=== PATIENT | male | born 1980 | race Caucasian/White ===

== ENCOUNTER → 2016-06-18 | Outpatient (CLI) | payer OTHER ==
[~2016-06-18] MED LIST: ACET120S PO; MULT1TAB10 PO; PRIL20CA PO; [UNRECOGNIZED DRUG - OTHER] PO
[2016-06-18 14:12] LABS: EOS # 0.1 K/mm3 (0.0-0.50); EOS % 1.8 % (0.0-3.0); LARGE UNSTAINED CELL # 0.2 K/mm3 (0.0-0.4); LARGE UNSTAINED CELL % 3.5 % (0.0-4.0); LYMPH # 1.8 K/mm3 (1.5-4.5); LYMPH % 34.3 % (24.0-44.0); MEAN CORPUSCULAR HEMOGLOBIN 28.7 pg (27.0-33.0); MEAN CORPUSCULAR HGB CONC 34.7 g/dl (32.0-36.5); MEAN CORPUSCULAR VOLUME 82.5 fl (80.0-96.0); MONO # 0.3 K/mm3 (0.0-0.8); MONO % 6.5 % (0.0-5.0); NEUTROPHILS # 2.8 K/mm3 (1.8-7.7); PLATELET COUNT, AUTOMATED 208 k/mm3 (150-450); RED CELL DISTRIBUTION WIDTH 12.8 % (11.5-14.5); WHITE BLOOD COUNT 5.2 K/mm3 (4.0-10.0)
[2016-06-18 14:15] LABS: MICROSCOPIC INDICATED? MAN YES (NO)
[2016-06-18 14:22] LABS: INR 1.02
[2016-06-18 14:26] LABS: BACTERIA, URINE NONE SEEN; HYALINE CAST, URINE NONE SEEN /lpf (0-1); MICROSCOPIC EXAM PERFORMED; SQUAMOUS EPITHELIAL CELL URINE NONE SEEN /hpf (SMALL AMT)
== END ==
LOC: M LAB 12:43
DX: J35.1 Hypertrophy of tonsils (principal)

== ENCOUNTER → 2016-06-20 | Day surgery (SDC) | payer OTHER ==
[~2016-06-20] VITALS: Ht 182.9 cm; Wt 108.9 kg
[~2016-06-20] MED LIST changes: +ACETAMINOPHEN/CODEINE 12.5 ML UDC PO PRN; +BUPIVACAINE HCL 0.25% 30 ML VIAL As Ordered ONE; +BUPIVACAINE HCL 0.25% 30 ML VIAL XX ONE; +LIDOCAINE 2% INJ 100 MG/5 ML SDV (FOR ANES.) As Ordered ONE; +LR 1,000 ML IV SCH; +METOCLOPRAMIDE INJ 10MG/2ML VIAL (J2765) IV PRN; +MIDAZOLAM INJ 2 MG/2 ML VIAL (J2250) As Ordered ONE; +ONDANSETRON 4MG/2ML VIAL (J2405) As Ordered ONE; +ONDANSETRON 4MG/2ML VIAL (J2405) IV PRN; +PERCOCET 5MG/325MG TAB PO PRN; +PROPOFOL 200 MG/20 ML VIAL As Ordered ONE; +ROCURONIUM BROMIDE 50 MG/5 ML VIAL As Ordered ONE; +SUCCINYLCHOLINE 100 MG/5 ML SYRINGE (J0330) As Ordered ONE; +dexameTHASONE 4 MG/ML 1ML VIAL (J1100) As Ordered ONE; +fentaNYL 100 MCG/2 ML INJECTION (J3010) As Ordered ONE
[2016-06-20] MEDS: fentaNYL 100 MCG/2 ML INJECTION (J3010) IV PRN ×2 (14:25→14:30)
[2016-06-20 18:30] VITALS: BP 130/70
--- NOTE | 2016-06-20 23:11 | RO ---
DATE OF PROCEDURE: 06/20/2016 PREPROCEDURE DIAGNOSIS: Hypertrophic tonsils and obstructive sleep apnea. POSTPROCEDURE DIAGNOSIS: Hypertrophic tonsils and obstructive sleep apnea. OPERATIVE PROCEDURE: Tonsillectomy. SURGEON: Martir Hannah MD GEOPHYSICAL OPERATOR: ANESTHESIA: DESCRIPTION OF OPERATION: The patient was moved to the operating room table in the supine position. After the induction of general anesthesia and placement of endotracheal tube, a Dasha-Herb mouth gag was inserted. The tonsillar fossa was then infiltrated with 0.25% Marcaine plain, a total of 7 mL was used between the two sides. The left tonsil was then grasped using a curved Allis clamp. Using the Coblation machine on Coblation, the tonsil was excised from the tonsillar fossa. Hemostasis was achieved using the coblation machine on cautery. The right tonsil was then grasped using a curved Allis clamp and again using the coblation machine on coblation, the tonsil was excised from the tonsillar fossa. Hemostasis was achieved initially with electrocautery. There was still some bleeding deep at the base of the inferior pole of the tonsil. Attempts to cauterize this with the Coblation machine just opened a large vein with some significant bleeding. This was packed for approximately 5 minutes, greatly reducing the bleeding, however, there was still bleeding in this area and because of its placement it was opted to cross-clamp the bleeder and then over sew it with a #3-0 Chromic suture ligature. After over sewing that, an using regular electrocautery for any other evidence of bleeding the procedure was terminated. As the patient was waking up in the operating room he coughed and bucked and had significant bleeding, but this quickly settled down so that there was no further bleeding when he left the operating room. The patient tolerated the procedure well, left the operating room in good condition. Sponge and needle counts were correct. Estimated blood loss for the procedure was 125 mL.
== END | disposition home or self-care (01) ==
LOC: M SDC 09:16
DX: J35.1 Hypertrophy of tonsils (principal); G47.33 Obstructive sleep apnea (adult) (pediatric)
CPT/HCPCS: 42826; 88302; J0330; J1100; J2250; J2405; J3010

== ENCOUNTER 2017-10-23 21:54 | Emergency (ER) | payer OTHER ==
[2017-10-23] MEDS: LIDOCAINE 2% W/EPIN INJ 20ML **PRES FREE INJ (23:15)
[2017-10-23] MEDS: ACETAMINOPHEN 325 MG TAB PO (23:20)
[2017-10-24] MEDS: CEPHALEXIN 500 MG CAP PO
== END 2017-10-24 00:15 | disposition home or self-care (01) ==
LOC: M ED 10-24 00:15
DX: S51.821A Laceration with foreign body of right forearm, initial encounter (principal); S50.11XA Contusion of right forearm, initial encounter; W17.89XA Other fall from one level to another, initial encounter; Y92.018 Other place in single-family (private) house as the place of occurrence of the external cause
CPT/HCPCS: 73090

== ENCOUNTER 2019-11-19 14:23 | Emergency (ER) | payer OTHER ==
[~2019-11-19] VITALS: Ht 188 cm; Wt 119.7 kg
[~2019-11-19 14:23] MED LIST changes: -ACET120S PO; +ACET125EL PO; -ACETAMINOPHEN/CODEINE 12.5 ML UDC PO PRN; -BUPIVACAINE HCL 0.25% 30 ML VIAL As Ordered ONE; -BUPIVACAINE HCL 0.25% 30 ML VIAL XX ONE; +KEFL500C17 PO; -LIDOCAINE 2% INJ 100 MG/5 ML SDV (FOR ANES.) As Ordered ONE; -LR 1,000 ML IV SCH; -METOCLOPRAMIDE INJ 10MG/2ML VIAL (J2765) IV PRN; -MIDAZOLAM INJ 2 MG/2 ML VIAL (J2250) As Ordered ONE; -ONDANSETRON 4MG/2ML VIAL (J2405) As Ordered ONE; -ONDANSETRON 4MG/2ML VIAL (J2405) IV PRN; -PERCOCET 5MG/325MG TAB PO PRN; -PRIL20CA PO; +PRIL20CA9 PO; -PROPOFOL 200 MG/20 ML VIAL As Ordered ONE; -ROCURONIUM BROMIDE 50 MG/5 ML VIAL As Ordered ONE; -SUCCINYLCHOLINE 100 MG/5 ML SYRINGE (J0330) As Ordered ONE; -dexameTHASONE 4 MG/ML 1ML VIAL (J1100) As Ordered ONE; -fentaNYL 100 MCG/2 ML INJECTION (J3010) As Ordered ONE
[2019-11-19] MEDS ORDERED: EMLA CREAM 5GM (LIDOCAINE/PRILOCAINE) TOP ONE (15:00)
--- NOTE | 2019-11-19 15:27 | REP ---
CT brain: 11/19/2019. Indication: Head trauma. Technique: Unenhanced axial CT images of the brain were obtained from skull base to vertex with coronal reconstructions provided. Comparison: None. Findings: There is no acute intracranial hemorrhage, acute cortical infarction, mass effect, hydrocephalus or acute calvarial fracture. Impression: No acute intracranial process. Electronically Signed by Oscar Mascorro DO 11/19/2019 03:18 P
[2019-11-19 15:36] VITALS: BP 126/86
== END 2019-11-19 15:50 | disposition home or self-care (01) ==
LOC: M ED 14:23
DX: S01.01XA Laceration without foreign body of scalp, initial encounter (principal); W26.8XXA Contact with other sharp object(s), not elsewhere classified, initial encounter; Y92.828 Other wilderness area as the place of occurrence of the external cause; Y93.89 Activity, other specified; Y99.9 Unspecified external cause status; F17.220 Nicotine dependence, chewing tobacco, uncomplicated

== ENCOUNTER 2022-03-30 02:03 | Emergency (ER) | payer OTHER ==
[~2022-03-30] VITALS: Ht 185.4 cm; Wt 118.2 kg
[2022-03-30] MEDS ORDERED: KETOROLAC 30 MG/ML 1ML VIAL IM ONE (07:00)
[2022-03-30] MEDS ORDERED: ACETAMINOPHEN 500 MG TAB PO ONE (07:00)
[2022-03-30] MEDS ORDERED: predniSONE 20 MG TAB PO ONE (07:00)
[2022-03-30] MEDS ORDERED: LIDOCAINE 5% (LIDODERM) PATCH TD ONE (07:00)
[2022-03-30] MEDS ORDERED: LIDO5DIS41 TOP (09:15)
[2022-03-30] MEDS ORDERED: MEDR4PAK PO (09:15)
[2022-03-30] MEDS ORDERED: CYCL-707 PO (09:16)
[2022-03-30 10:00] VITALS: BP 129/88
== END 2022-03-30 10:00 | disposition home or self-care (01) ==
LOC: M ED 02:03
DX: S16.1XXA Strain of muscle, fascia and tendon at neck level, initial encounter (principal); M54.12 Radiculopathy, cervical region; M62.838 Other muscle spasm; F12.10 Cannabis abuse, uncomplicated; F10.10 Alcohol abuse, uncomplicated; Z79.899 Other long term (current) drug therapy; Y92.9 Unspecified place or not applicable; Y93.9 Activity, unspecified
CPT/HCPCS: 72125; 96372; 99283; J1885; J7512

== ENCOUNTER → 2022-04-12 | Outpatient (CLI) | payer OTHER ==
[~2022-04-12] MED LIST changes: +CYCL-707 PO; +LIDO5DIS41 TOP; +MEDR4PAK PO
== END ==
LOC: M PLARAD 08:04
PROVIDERS: ATTEND Physician Assistant
DX: M50.90 Cervical disc disorder, unspecified, unspecified cervical region (principal)

== ENCOUNTER → 2022-12-11 | Outpatient (CLI) | payer OTHER ==
[2022-12-11 10:32] LABS: BASO # 0.1 10^3/uL (0.0-0.2); BASO % 1.1 % (0.0-1.0); EOS # 0.2 10^3/uL (0.0-0.5); EOS % 2.8 % (0.0-3.0); HEMATOCRIT 42.2 % (42.0-52.0); HEMOGLOBIN 14.4 g/dl (13.5-17.5); LYMPH % 35.5 % (24.0-44.0); MEAN CORPUSCULAR HEMOGLOBIN 28.5 pg (27.0-33.0); MEAN CORPUSCULAR HGB CONC 34.1 g/dl (32.0-36.5); MEAN CORPUSCULAR VOLUME 83.6 fl (80.0-96.0); MONO # 0.6 10^3/uL (0.0-0.8); MONO % 9.9 % (2.0-8.0); NEUTROPHILS # 2.8 10^3/uL (1.5-8.5); NEUTROPHILS % 50.5 % (36.0-66.0); PLATELET COUNT, AUTOMATED 212 10^3/uL (150-450); RED BLOOD COUNT 5.05 10^6/uL (4.30-6.10); WHITE BLOOD COUNT 5.6 10^3/uL (4.0-10.0)
[2022-12-11 11:02] LABS: HEMOGLOBIN A1c 5.3 % (4.0-6.0)
[2022-12-11 11:08] LABS: ALBUMIN 4.3 G/DL (3.2-5.2); ALKALINE PHOSPHATASE 61 U/L (46-116); ALT/SGPT 23 U/L (7.0-40); AST/SGOT 12 U/L (<34); BILIRUBIN,TOTAL 0.6 MG/DL (0.3-1.2); BLOOD UREA NITROGEN 26 MG/DL (9-23); CALCIUM LEVEL 9.6 MG/DL (8.5-10.1); CARBON DIOXIDE LEVEL 29 MMOL/L (20-31); CHLORIDE LEVEL 105 MMOL/L (98-107); CHOLESTEROL LEVEL 176 MG/DL (<200); CHOLESTEROL RISK RATIO 3.83 (<5); CREATININE FOR GFR 0.99 MG/DL (0.70-1.30); GLOMERULAR FILTRATION RATE > 60.0 (>60); GLUCOSE, FASTING 95 MG/DL (60-100); HDL CHOLESTEROL 45.9 MG/DL (>40); LDL CHOLESTEROL 115.1 MG/DL (<100); NON-HDL-C 130.1 MG/DL; POTASSIUM SERUM 3.9 MMOL/L (3.5-5.1); SODIUM LEVEL 140 MMOL/L (136-145); THYROID STIMULATING HORMONE 2.126 uIU/ML (0.55-4.78); TOTAL 25(OH) VITAMIN D 36.4 NG/ML (20.0-100.0); TOTAL PROTEIN 6.7 G/DL (5.7-8.2); TRIGLYCERIDES LEVEL 75 MG/DL (<150)
== END ==
LOC: M WUC 08:03
PROVIDERS: ATTEND Physician Assistant
DX: Z13.29 Encounter for screening for other suspected endocrine disorder (principal); Z13.220 Encounter for screening for lipoid disorders; M25.512 Pain in left shoulder
CPT/HCPCS: 36415; 73030; 80053; 80061; 82306; 83036; 84439; 84443; 85025; G0103

== ENCOUNTER → 2023-04-16 | Outpatient (CLI) | payer OTHER | LOC: M RAD 13:03 | PROVIDERS: ATTEND Physician Assistant | DX: M25.512 Pain in left shoulder (principal) ==

== ENCOUNTER → 2024-02-11 | Outpatient (CLI) | payer OTHER | LOC: M WUC 08:48 | PROVIDERS: ATTEND Physician Assistant | DX: M43.26 Fusion of spine, lumbar region (principal); M46.1 Sacroiliitis, not elsewhere classified; M76.61 Achilles tendinitis, right leg ==

== ENCOUNTER → 2025-03-14 | Outpatient (CLI) | payer OTHER ==
[~2025-03-14] MED LIST changes: +LIDO1ADH93 TOP; -LIDO5DIS41 TOP
== END ==
LOC: M SOG 07:27
PROVIDERS: ATTEND Physician Assistant
DX: M25.532 Pain in left wrist (principal)

== ENCOUNTER → 2025-04-21 | Outpatient (CLI) | payer OTHER ==
[~2025-04-21] MED LIST changes: +PROHANCE 279.3MG/ML 15ML VIAL ONE; +PROHANCE 279.3MG/ML 5ML VIAL ONE
== END ==
LOC: M PLAIMG 12:41
PROVIDERS: ATTEND Physician Assistant
DX: M25.532 Pain in left wrist (principal); M25.832 Other specified joint disorders, left wrist; M25.432 Effusion, left wrist; M65.932 Unspecified synovitis and tenosynovitis, left forearm
CPT/HCPCS: 73223; A9579